=== PATIENT | female | born 1960 | race Caucasian/White ===

== ENCOUNTER 2022-03-05 10:13 | Day surgery (SDC) | payer BC, SELFPAY ==
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
[2022-03-05] VITALS (35 sets, daily range): BP systolic 82–170; BP diastolic 52–128; PULSE 59–93; RESP 13–20; TEMP 36.1–36.8; O2SAT 95–100; BMI 26.2
--- NOTE | 2022-03-05 10:31 | SUR.PREOP ---
NEgative COVID Antigen test.
[2022-03-05] MEDS: OXYCODONE (CR) 10 MG TAB.ER.12H PO (10:57)
[2022-03-05] MEDS: CELECOXIB 200 MG CAPSULE PO ×2 (10:57→20:48)
[2022-03-05] MEDS: ACETAMINOPHEN 500 MG TABLET 1000 MG PO (10:57)
[2022-03-05] MEDS: LACTATED RINGERS 1000 ML 1,000 ML 100 ML IV ×2 (11:25→14:00)
[2022-03-05] MEDS: SODIUM CHLORIDE 0.9 % (FLUSH) 10 ML SYRINGE IVF (11:25)
--- NOTE | 2022-03-05 11:33 | SUR.PREOP ---
TIME?OUT:?1133 PT/RN/MDA?VERIFICATION?OF?SURGICAL?SITE,?PROCEDURE,?AND?CONSENT OBTAINED?PRIOR?TO?INVASIVE?PROCEDURE.
[2022-03-05] MEDS: MIDAZOLAM HCL 1 MG/ML inj IVP (11:35)
[2022-03-05] MEDS: fentaNYL 100 MCG/2 ML inj IVP (11:35)
--- NOTE | 2022-03-05 11:52 | W.PM.NB ---
Nerve Block Nerve Block Time Seen by Provider: 11:40 Date Seen: 03/05/22 Type of block requested by surgeon for post-operative analgesia: adductor canal Side: bilateral Time out performed: Yes Verification of patient name: Yes Verification of date of : Yes Site marking: site marked Name of person performing procedure: Nils Continuous monitoring Was continuous monitoring of O2 sat, B/P, cardiac catheterization technologist, recorded every 15 minutes?: Yes Procedure Checklist: sterile prep, needles and gloves Ultrasound guided. Images saved: Yes Medications given in 5ml increments after negative aspiration: Marcaine %: 0.25 mL: 26 Needle gauge: 20 and Exparel mL: 14 Needle gauge: 20 Patient tolerated procedure well: Yes Additional comments: Needle noted adjacent to nerve Block Charges Block Charge (with Pro Fee): Femoral Nerve Use of Ultrasound Machine for Block: Yes- US Guidance/pain block
--- NOTE | 2022-03-05 11:55 | W.PM.NB ---
Nerve Block Nerve Block Time Seen by Provider: 11:40 Date Seen: 03/05/22 Type of block requested by surgeon for post-operative analgesia: geniculars Side: bilateral Time out performed: Yes Verification of patient name: Yes Verification of date of : Yes Site marking: site marked Name of person performing procedure: Nils Continuous monitoring Was continuous monitoring of O2 sat, B/P, smash piecer, recorded every 15 minutes?: Yes Procedure Checklist: sterile prep, needles and gloves Medications given in 5ml increments after negative aspiration: Marcaine %: 0.25 mL: 14 Needle gauge: 20 and Exparel mL: 6 Needle gauge: 20 Patient tolerated procedure well: Yes Block Charges Block Charge (with Pro Fee): Genicular Nerve Block Use of Ultrasound Machine for Block: No
[2022-03-05] MEDS: CEFAZOLIN 2 GM INJ IVP (12:44)
[2022-03-05] MEDS: TRANEXAMIC ACID 100 MG/ML INJ 1000 MG IV (12:45)
--- NOTE | 2022-03-05 13:54 | CRLHL7_ITS ---
For Patients: As a result of the Century Cures Act, medical imaging exams and procedure reports are released immediately into your electronic medical record. You may view this report before your referring provider. If you have questions, please contact your health care provider. Indication: POST OP BI LAT KNEES Technique: Two views each knee, four views total Findings/Impression: Hardware from bilateral total knee arthroplasties are in satisfactory position. Bone alignment is normal. No sign of acute fracture. Postop changes are within normal limits. Dictated by Cabrera Stanton MD @ 03/05/2022 8:06:56 PM (Electronically Signed)
--- NOTE | 2022-03-05 15:19 | P.ORPRC_ITS ---
Procedure Note Date of procedure: 03/05/22 Procedure: SURGEON: Moy Brink MD CO SUPERVISOR GROUNDS AND LANDSCAPE: NACHO Flaherty PA-C PREOPERATIVE DIAGNOSIS: Bilateral knee osteoarthritis POSTOPERATIVE DIAGNOSIS: Bilateral knee osteoarthritis NAME OF OPERATION: Bilateral total knee arthroplasty ANESTHESIA: Spinal ESTIMATED BLOOD LOSS: 0 mL COMPLICATIONS: None SPECIMENS: None DRAINS: None PREOPERATIVE ANTIBIOTICS: Ancef 2 grams IMPLANTS: Left knee: 1. J&J Attune # 6 narrow posterior stabilized femur 2. # 4 fixed-bearing tibia 3. #6 posterior stabilized, 5 mm fixed-bearing polyethylene 4. 38 patella Right knee: 1. J&J Attune # 5 posterior stabilized femur 2. # 5 fixed-bearing tibia 3. # 5 posterior stabilized, 5 mm fixed-bearing polyethylene 4. 38 patella INDICATIONS: The patient is a 61-year-old female with a longstanding history of severe, unrelenting bilateral knee pain secondary to end-stage (grade IV) bilateral knee osteoarthritis. Despite appropriate nonoperative management, including activity modification, anti-inflammatories, [id number] pain medication, bracing, physical therapy, and injections they continue to have pain and disability. Operative intervention was offered. The risks, benefits and expected outcomes were discussed in detail. These included but were not limited to: Infection, bleeding, injury to blood vessel or nerve, venous thromboembolism. All questions were answered to their satisfaction. Use of an assistant store manager trainee was necessary throughout the case for patient positioning and safety, soft tissue retraction, and closure. PROCEDURE: Spinal anesthesia was administered. The patient was placed supine on the operating table. The assistant store manager trainee made sure the patient was positioned appropriately. Both lower extremities were prepped and draped in the usual sterile fashion. We approached the left knee 1st. The limb was exsanguinated with the Fran bandage. The pneumatic tourniquet was inflated to 300 mmHg. A standard anterior incision was made with the knee in flexion. Subcutaneous dissection was sharply taken through fascial layer #1. Full-thickness medial and lateral flaps were elevated. The assistant store manager trainee retracted the soft tissues and protected them throughout the case. A standard medial parapatellar approach was made. The patella was everted. The infrapatellar fat pad was preserved. The menisci and cruciate ligaments were sharply d?brided. Marginal osteophytes were d?brided with the rongeur. The drill was used to penetrate the femoral canal. The canal was aspirated and irrigated with pulse lavage. The intramedullary femoral guide was placed for a 5-degree valgus cut, removing 10 mm off the distal femur. The saw was used to make the cut. Whitesides line and the trans epicondylar axis were marked. The femoral sizing guide was pinned onto the distal femur. Three degrees of external rotation nicely parallels the transepicondylar axis. Pins were placed for posterior referencing. The four-in-one cutting guide was pinned onto the distal femur. The anterior, posterior, and chamfer cuts were made. The a ssistant protected the collateral ligaments. The box cutting guide was pinned. The box cuts were made. The boxed trial was placed and was an excellent fit. Drill holes for the lugs were made. Attention was then turned to the proximal tibia. The extramedullary tibial guide was placed for a neutral varus/valgus cut with 5 degrees of posterior slope, removing 2 mm based off the medial tibial surface. The assistant store manager trainee protected the collateral ligaments and the neurovascular bundle. The saw was used to make the cut. Trial components were placed. The knee was tight in both flexion and extension. We tested our gaps simulating removing 2 more mm off of the tibia and 4 more mm. We elected to remove 4 more mm as this nicely balanced the knee. Therefore, the tibial guide was replaced. Pins were advanced distally and then the guide was advanced 4 more mm distally. Again, the saw was used to make the cut. Trial components were placed again and now knee is nicely balanced in both flexion and extension. The trial components were removed. The tray was placed in appropriate rotation, parallel to our tibial cutting pins. It was pinned by the assistant store manager trainee and the drill and the punch were used. The tray was removed. The punch was used again. We placed a bone plug in the femoral canal. Attention was then turned to the patella. Navajo patellar thickness was 24 mm. The lobster claw resection guide was used with the 9.5 mm dung. The saw was used to make the cut. Drill holes were made by the assistant store manager trainee. The trial was placed and was an excellent fit. Cancellous surfaces were irrigated with pulse lavage and thoroughly dried by the assistant store manager trainee. We cemented the tibial component, then the femoral component. We impacted the 5 mm polyethylene onto the tibial tray. The knee was brought into full extension. We then cemented the patellar component. Excessive cement was removed. The cement was allowed to harden. The knee was taken through a range of motion and was found to be nicely balanced in both flexion and extension. The patella tracks centrally. The assistant store manager trainee did a three minute dilute Betadine solution soak. The assistant store manager trainee irrigated the wound with 3 liters of normal saline via pulse lavage. The assistant store manager trainee reapproximated the extensor mechanism with #1 Vicryl in an interrupted bigswi-ql-[id number] fashion. The assistant store manager trainee then ran the extensor mechanism with a #1 PDO Stratafix. The assistant store manager trainee closed the subcutaneous tissues with a 3-0 Stratafix and the skin with a running 3-0 Stratafix in a subcuticular fashion. Glue was used to seal the skin. Attention was then turned to the right knee. The limb was exsanguinated with the Fran bandage. The pneumatic tourniquet was inflated to 300 mmHg. A standard anterior incision was made with the knee in flexion. Subcutaneous dissection was sharply taken through fascial layer #1. Full-thickness medial and lateral flaps were elevated. The assistant store manager trainee retracted the soft tissues and protected them throughout the case. A standard medial parapatellar approach was made. The patella was everted. The infrapatellar fat pad was preserved. The menisci and cruciate ligaments were sharply d?brided. Marginal osteophytes were d?brided with the rongeur. The drill was used to penetrate the femoral canal. The canal was aspirated and irrigated with pulse lavage. The intramedullary femoral guide was placed for a 5-degree valgus cut, removing 10 mm off the distal femur. The saw was used to make the cut. Whitesides line and the trans epicondylar axis were marked. The femoral sizing guide was pinned onto the distal femur. Three degrees of external rotation nicely parallels the transepicondylar axis. Pins were placed for posterior referencing. The four-in-one cutting guide was pinned onto the distal femur. The anterior, posterior, and chamfer cuts were made. The assistant store manager trainee protected the collateral ligaments. The box cutting guide was pinned. The box cuts were made. The boxed trial was placed and was an excellent fit. Drill holes for the lugs were made. Attention was then turned to the proximal tibia. The extramedullary tibial guide was placed for a neutral varus/valgus cut with 5 degrees of posterior slope, removing 2 mm based off the medial tibial surface. The assistant store manager trainee protected the collateral ligaments and the neurovascular bundle. The saw was used to make the cut. Trial components were placed. The knee was nicely balanced in both flexion and extension. The trial components were removed. The tray was placed in appropriate rotation, parallel to our tibial cutting pins. It was pinned by the assistant store manager trainee and the drill and the punch were used. The tray was removed. The punch was used again. We placed a bone plug in the femoral canal. Attention was then turned to the patella. Navajo patellar thickness was 25 mm. The Kisstixx claw resection guide was used with the 9.5 mm dung. The saw was used to make the cut. Drill holes were made by the assistant store manager trainee. The trial was placed and was an excellent fit. Cancellous surfaces were irrigated with pulse lavage and thoroughly dried by the assistant store manager trainee. We cemented the tibial component, then the femoral component. We impacted the 5 mm polyethylene onto the tibial tray. The knee was brought into full extension. We then cemented the patellar component. Excessive cement was removed. The cement was allowed to harden. The knee was taken through a range of motion and was found to be nicely balanced in both flexion and extension. The patella tracks centrally. The assistant store manager trainee did a three minute dilute Betadine solution soak. The assistant store manager trainee irrigated the wound with 3 liters of normal saline via pulse lavage. The assistant store manager trainee reapproximated the extensor mechanism with #1 Vicryl in an interrupted aleylh-lk-wsvgx fashion. The assistant store manager trainee then ran the extensor mechanism with a #1 PDO Stratafix. The assistant store manager trainee closed the subcutaneous tissues with a 3-0 Stratafix and the skin with a running 3-0 Stratafix in a subcuticular fashion. Glue was used to seal the skin. On both knees, the assistant store manager trainee placed a dry dressing, YI stocking, and Polar Care. Sponge and needle counts were correct x2. The patient tolerated the procedure well. There were no apparent complications. They were carefully transferred to the hospital bed and taken to the postanesthesia care unit in satisfactory condition. PLAN: The patient will be mobilized with physical therapy. Aspirin will be used for DVT prophylaxis. They will be discharged to home once medically appropriate.
--- NOTE | 2022-03-05 16:09 | W.ANESCHARGE ---
Anesthesia Charges Start Date/Time Anesthesia Start Date: 03/05/22 Anesthesia Start Time: 12:34 Stop Date/Time Anesthesia Stop Date: 03/05/22 Anesthesia Stop Time: 16:06 Summary Emergency: No
--- NOTE | 2022-03-05 16:10 | W.ANESCHARGE ---
Anesthesia Charges Start Date/Time Anesthesia Start Date: 03/05/22 Anesthesia Start Time: 12:34 Stop Date/Time Anesthesia Stop Date: 03/05/22 Anesthesia Stop Time: 16:06 Summary Emergency: No
[2022-03-05] MEDS: HYDROmorphone 0.5 mg/0.5 ml inj IVP ×6 (16:13→22:07)
[2022-03-05] MEDS: ONDANSETRON 2 MG/ML inj 4 MG IVP (16:15)
[2022-03-05] MEDS: fentaNYL 100 MCG/2 ML inj 50 MCG IVP ×2 (16:19→16:34)
[2022-03-05] MEDS: ACETAMINOPHEN 1,000 MG/100 ML INJ 1000 MG IVPB (17:12)
[2022-03-05] MEDS: OXYCODONE 5 MG TABLET PO (19:13)
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
[2022-03-05] MEDS: CEFAZOLIN 1 GM in 0.9 % SODIUM CHLORIDE Mini-bag 100 ML IVPB (19:43)
[2022-03-05] MEDS: ASPIRIN 81 MG TABLET EC PO (20:47)
[2022-03-05] MEDS: SENNOSIDES 1 TAB TABLET 2 TAB PO (20:48)
[2022-03-06] VITALS (7 sets, daily range): BP systolic 118–157; BP diastolic 64–128; PULSE 77–106; RESP 16–18; TEMP 36.2–36.4; O2SAT 95–100
[2022-03-06] MEDS: HYDROmorphone 0.5 mg/0.5 ml inj IVP (00:30)
[2022-03-06] MEDS: OXYCODONE 5 MG TABLET PO ×6 (00:33→13:00)
[2022-03-06] MEDS: ACETAMINOPHEN 500 MG TABLET 1000 MG PO ×3 (00:35→13:00)
[2022-03-06] MEDS: LORazepam 0.5 MG TABLET PO (00:36)
[2022-03-06] MEDS: CEFAZOLIN 1 GM in 0.9 % SODIUM CHLORIDE Mini-bag 100 ML IVPB ×2 (04:21→10:37)
[2022-03-06 06:44] LABS: Basophils Absolute Auto 0.01 K/uL (0.00-0.30); Basophils Percent Auto 0.1 % (0.0-3.0); Eosinophils Absolute Auto 0.01 K/uL (0.00-0.50); Eosinophils Percent Auto 0.1 % (0.0-7.0); Hematocrit 36.7 % (33.0-51.0); Immature Granulocytes Abs Auto 0.01 K/uL (0.00-0.30); Lymphocytes Percent Auto 9.2 % (20-44); Mean Corpuscular HGB Conc 33 gm/dL (32-36); Mean Corpuscular Hemoglobin 29 pg (26-34); Mean Corpuscular Volume 89 fL (80-100); Monocytes Percent Auto 11.1 % (0.0-11.0); Neutrophils Percent Auto 79.4 % (42.0-72.0); Platelet Count* 258 K/uL (140-440); RDW Coefficient of Variation % 14.4 % (11.5-15.5); Red Blood Count 4.14 m/uL (4.00-5.20); White Blood Count* 6.77 K/uL (4.50-11.00)
--- NOTE | 2022-03-06 06:48 | PC.NURSE ---
Pt A&O x3 Up with 1 assist and walker to BR. Did well. Intially pain was an issue but was resolved quickly is now taking oxycodone 10mg q3-4 hrs. Pt slept well.
[2022-03-06 06:57] LABS: Slide Review Reflex No
[2022-03-06 07:10] LABS: Potassium* 4.8 mmol/L (3.6-5.1); Sodium* 137 mmol/L (135-149)
[2022-03-06 07:13] LABS: Blood Urea Nitrogen* 14 mg/dL (7-30); Creatinine* 0.8 mg/dL (0.5-1.5); Est. Creatinine Clearance* 51.02; Estimated Glomerular Filt Rate 84 ml/min
[2022-03-06 07:17] LABS: INR 0.96 (0.91-1.10); Prothrombin Time 13.4 Seconds
--- NOTE | 2022-03-06 07:53 | P.ORPN_ITS ---
Subjective Subjective Time Seen by Provider: 08:30 Date Seen: 03/06/22 Principal diagnosis: Day 1 s/p bilateral TKA Interval history: Sharda is doing well this morning and is resting comfortably in bed. Patient complains of diffuse bilateral knee pain worse at night. Pain is currently well managed with Oxycodone, Tylenol, Ativan and icing. Denies: fever, chills, body aches, chest pain, SOB. Denies having a bowel movement since surgery and reports no flatulence yet. Admits to appetite, however at the end of our conversation, Sharda wished to rest instead of eat her breakfast. Ortho Exam Narrative Exam Narrative: Incision/Dressing: Dressings appear clean and dry. No drainage present. Mepilex intact bilaterally. Bilateral knees appear moderately swollen but supple with no obvious erythema, fluctuance or excessive warmth. No ecchymosis or erythematous streaking. Warmth around the wounds is appropriate. Ice is being utilized as n eeded. CMS: Intact distally with 2+ Dorsalis pedis and Posterior Tibial pulses. 5/5 motor strength dorsal and plantar flexion. Confirmed sensation distally. Calf: Bilateral calves are supple, with no swelling, pain, tenderness, erythema, discoloration or coolness to the touch. Constitutional: Patient is alert and oriented x3. Patient is in no acute distress and converses without labored breathing. Patient is able to make decisions and demonstrates good insight. Patient is pleasant and cooperative. Affect is full range and appropriate for the circumstances. Const Vital Signs, click to edit/add: Vital Signs - 24 hr 03/05/22 11:27 03/05/22 11:33 03/05/22 11:35 Temperature 98.3 F Pulse Rate 79 75 74 Pulse Rate [Left Pulse Oximeter] Respiratory Rate 16 16 16 Blood Pressure 143/91 H 132/83 137/78 Blood Pressure [Left Arm] Pulse Oximetry 97 100 100 Oxygen Delivery Method Room Air Nasal Cannula Nasal Cannula Oxygen Flow Rate 3 3 03/05/22 11:40 03/05/22 11:45 03/05/22 11:50 Temperature Pulse Rate 72 78 71 Pulse Rate [Left Pulse Oximeter] Respiratory Rate 16 16 16 Blood Pressure 117/67 115/63 116/63 Blood Pressure [Left Arm] Pulse Oximetry 100 100 100 Oxygen Delivery Method Nasal Cannula Nasal Cannula Nasal Cannula Oxygen Flow Rate 3 3 3 03/05/22 12:00 03/05/22 12:10 03/05/22 12:20 Temperature Pulse Rate 71 67 64 Pulse Rate [Left Pulse Oximeter] Respiratory Rate 16 16 16 Blood Pressure 118/72 120/73 129/76 Blood Pressure [Left Arm] Pulse Oximetry 100 100 100 Oxygen Delivery Method Nasal Cannula Nasal Cannula Nasal Cannula Oxygen Flow Rate 3 3 3 03/05/22 12:30 03/05/22 16:04 03/05/22 16:25 Temperature 98.3 F 98.3 F Pulse Rate 65 88 78 Pulse Rate [Left Pulse Oximeter] Respiratory Rate 16 17 13 Blood Pressure 138/77 139/80 117/97 H Blood Pressure [Left Arm] Pulse Oximetry 100 100 100 Oxygen Delivery Method Nasal Cannula Oxygen Flow Rate 3 03/05/22 16:55 03/05/22 17:05 03/05/22 17:15 Temperature 98.3 F 98.3 F 98.3 F Pulse Rate 62 83 87 Pulse Rate [Left Pulse Oximeter] Respiratory Rate 14 19 15 Blood Pressure 158/96 H 133/103 H 131/92 H Blood Pressure [Left Arm] Pulse Oximetry 100 100 100 Oxygen Delivery Method Oxygen Flow Rate 03/05/22 17:20 03/05/22 16:10 03/05/22 16:15 Temperature 97.7 F 98.3 F 98.3 F Pulse Rate 85 88 83 Pulse Rate [Left Pulse Oximeter] Respiratory Rate 16 20 17 Blood Pressure 146/95 H 136/82 140/86 H Blood Pressure [Left Arm] Pulse Oximetry 100 100 100 Oxygen Delivery Method Nasal Cannula Oxygen Flow Rate 3 03/05/22 16:20 03/05/22 16:30 03/05/22 16:35 Temperature 98.3 F 98.3 F 98.3 F Pulse Rate 80 81 65 Pulse Rate [Left Pulse Oximeter] Respiratory Rate 17 15 16 Blood Pressure 113/93 H 100/73 150/52 H Blood Pressure [Left Arm] Pulse Oximetry 100 100 100 Oxygen Delivery Method Oxygen Flow Rate 03/05/22 16:39 03/05/22 16:45 03/05/22 16:50 Temperature 98.3 F 98.3 F 98.3 F Pulse Rate 70 86 59 L Pulse Rate [Left Pulse Oximeter] Respiratory Rate 16 16 17 Blood Pressure 150/52 H 82/58 L 115/78 Blood Pressure [Left Arm] Pulse Oximetry 100 100 100 Oxygen Delivery Method Oxygen Flow Rate 03/05/22 17:00 03/05/22 17:10 03/05/22 17:25 Temperature 98.3 F 98.3 F 97.7 F Pulse Rate 61 66 87 Pulse Rate [Left Pulse Oximeter] Respiratory Rate 20 15 16 Blood Pressure 125/100 H 149/86 H 147/128 H Blood Pressure [Left Arm] Pulse Oximetry 100 100 100 Oxygen Delivery Method Oxygen Flow Rate 03/05/22 17:42 03/05/22 17:45 03/05/22 18:00 Temperature 97.5 F L Pulse Rate 77 Pulse Rate [Left Pulse Oximeter] 68 85 Respiratory Rate 16 16 18 Blood Pressure Blood Pressure [Left Arm] 168/83 H 159/84 H 169/88 H Pulse Oximetry 98 96 Oxygen Delivery Method Room Air Room Air Oxygen Flow Rate 03/05/22 18:15 03/05/22 18:30 03/05/22 19:11 Temperature 98.2 F 97 F L Pulse Rate Pulse Rate [Left Pulse Oximeter] 70 74 93 Respiratory Rate 16 16 16 Blood Pressure Blood Pressure [Left Arm] 155/70 H 163/80 H 161/79 H Pulse Oximetry 95 100 100 Oxygen Delivery Method Room Air Room Air Room Air Oxygen Flow Rate 0 03/05/22 19:47 03/05/22 21:12 03/06/22 00:35 Temperature 97 F L 97.5 F L 97.1 F L Pulse Rate Pulse Rate [Left Pulse Oximeter] 88 88 Respiratory Rate 16 16 Blood Pressure Blood Pressure [Left Arm] 170/89 H 149/74 H Pulse Oximetry 98 98 Oxygen Delivery Method Room Air Room Air Oxygen Flow Rate 0 0 03/06/22 01:30 03/06/22 02:28 03/06/22 03:00 Temperature 97.1 F L 97.1 F L 97.1 F L Pulse Rate Pulse Rate [Left Pulse Oximeter] 104 H 92 Respiratory Rate 16 16 Blood Pressure Blood Pressure [Left Arm] 157/64 H 138/96 H Pulse Oximetry 95 95 Oxygen Delivery Method Room Air Room Air Oxygen Flow Rate 0 Documenting provider has reviewed patient's vital signs: yes Assessment and Plan Assessment and plan (1) Total knee replacement status: Problem details: Day 1 s/p bilateral TKA. DOS: 03/05/22. Status: Acute Assessment and Plan: - Complete 23 hour perioperative antibiotics. - PT/OT consults for education and assistance. - Social consult for discharge planning. - Weight bear as tolerated. - DVT prophylaxis includes: aspirin 81 mg BID x 1 month. Also bilateral knee high Luis Enrique stockings (x 1 month), frequent ambulation and ankle pumps when sedentary. - Anticipate patient will be discharged to home this afternoon if the patient remains medically stable, pain is controlled and is safe with ambulation. - Patient has outpatient PT in [place] scheduled to begin Wednesday with [facility]. - Return to clinic in 1 week for a wound check. Mepilex dressing will be removed at this appointment. Remove sooner if dressing becomes saturated. - Return to clinic in [address] Brink. - Prescribed analgesics as needed. Patient is content with current narcotic medications. Minimize narcotic pain medication use; wean off and discontinue as soon as possible. - Phone Orthopedics with any questions or concerns. (2) Bilateral primary osteoarthritis of knee: Status: Acute
[2022-03-06] MEDS: ASPIRIN 81 MG TABLET EC PO (08:14)
[2022-03-06] MEDS: CELECOXIB 200 MG CAPSULE PO (08:14)
[2022-03-06] MEDS: SENNOSIDES 1 TAB TABLET 2 TAB PO (08:14)
[2022-03-06] MEDS: BRIMONIDINE TARTRATE 0.2% OPHTH 1 DROP EYE-BOTH (08:38)
--- NOTE | 2022-03-09 11:32 | PM.DS1 ---
DS: Providers Provider Time Seen by Provider: 08:00 Date Seen: 03/06/22 Date of admission: 03/05/2022 Primary care physician: Lina Brush, [employer], [employer] Admitting Clinician: Moy Brink MD Consults: 03/05/22 17:48 Consult to Occupational Therapy [CONS] Routine Comment: Reason(s) for OT Consult:: ADLs Prior to Discharge Any Restrictions?:: See Comment Comment: See nursing activity order for any restrictions. Consult to Physical Therapy [CONS] Routine Comment: Ambulate in the rehman today. Reason(s) for PT Consult:: TKA TX Protocol POD#0 Any Restrictions?:: See Comment Comment: See nursing activity order for any restrictions. Consult to Physician [CONS] Routine Comment: Consulting Provider: Hospitalists Has provider been notified: No Consult to [place] Planning Manager [CONS] Routine Comment: Reason for Consult:: Discharge Planning Needs Attending Physician on discharge: Moy Brink MD Date of Discharge: 03/06/22 DS: Diagnosis Discharge Diagnosis (1) Bilateral primary osteoarthritis of knee: Status: Acute (2) Total knee replacement status: Status: Acute Problem details: Day 1 s/p bilateral TKA. DOS: 03/05/22. DS: Summary Hospital Course Hospital Course: 61-year-old woman with bilateral end-stage gonarthrosis, who underwent elective bilateral total knee arthroplasties without apparent complication. Status at Discharge Functional status at discharge: uses cane/walker Overall status at discharge: patient is progressing back to baseline Time Spent with Patient Time attestation: Total time spent providing and/or coordinating discharge services: Exam Narrative: Exam Narrative: GEN: Alert HEENT: Normal external ears, EOMIs bilaterally, no scleral icterus CV: RRR, soft systolic murmur without radiation or concerning features R: LCTA bilaterally without concerning wheezing, rales, or rhonchi Ext: wwp, no concerning edema Skin: No concerning skin lesions or rashes on exposed skin Neuro: Nonfocal Psych: Appropriate Able to ambulate the halls with her walker independently. Const: Documenting provider has reviewed patient's vital signs: yes Discharge Plan Discharge Disposition: Home, Self-Care Discharging Surgeon: Moy Brink Follow-Up Appointment: 1 week/or as scheduled Prescriptions: New acetaminophen 500 mg Tablet 500 - 1,000 mg PO Q4-6H Qty: 100 0RF aspirin 81 mg Tablet,Delayed Release (Dr/Ec) 81 mg PO BID Qty: 60 0RF celecoxib 200 mg Capsule 200 mg PO BID Qty: 30 0RF oxycodone 5 mg Tablet 2.5 - 10 mg PO Q4-6H PRN (Reason: Pain) Qty: 42 0RF Rx Instructions: Minimize use. Wean off and discontinue as soon as possible. sennosides [Senna Lax] 8.6 mg Tablet 17.2 mg PO BID PRN (Reason: constipation) Qty: 30 0RF Rx Instructions: Hold if experiencing loose stools. ondansetron 4 mg tablet,disintegrating 4 mg PO Q6H Qty: 20 0RF Rx Instructions: As needed for nausea or vomiting Continued albuterol sulfate [Ventolin HFA] 90 mcg/actuation HFA aerosol inhaler 1 - 2 puff INHALATION Q4H PRN brimonidine 0.2 % drops 1 drp ophthalmic (eye) BID Rx Instructions: both eyes cyclobenzaprine 10 mg tablet 10 mg PO TID PRN latanoprost 0.005 % drops 1 drp ophthalmic (eye) HS meclizine 25 mg tablet 25 mg PO TID PRN valacyclovir [Valtrex] 500 mg tablet 500 mg PO BID Held celecoxib 200 mg capsule 200 mg PO BIDWM Hold Instructions: Resume after completion of celecoxib orders per ortho Activity Level: Activity as Tolerated and No strenuous activity Activity Detail: Keep dressings on for 1 week. Dressings are waterproof. May shower. Surgical glue covers the wounds. Attend physical therapy. Ice and elevate operative extremity without restriction. Wear compression stockings for 1 month post surgery. May remove for 1 hour per day. Ambulate every hour throughout the day. If you drive, do not drive while taking narcotic pain medication. Do not drink alcohol while taking narcotic pain medication. May drive when safe to do so and have full function of the extremities, this will likely take 6 weeks or more. Notify Orthopedics with any questions or concerns. ([phone]) Discharge Diet: Regular Patient Instructions: Acetaminophen (By mouth), Aspirin (By mouth), Oxycodone, Rapid Release (By mouth), Ondansetron (By mouth), Celecoxib (By mouth), Senna (By mouth), Surgical Site Infections (DC), Knee Replacement (DC) Forms: Work/Release Restrictions Follow-up: [facility] [Other] - 03/09/22 11:00 am Katarina Horton PA-C [Physician [employer]] - 03/11/22 12:00 pm ([facility]) Discharge Orders: Discharge Order (Routine); Ordered 03/06/22 Ordered By: Alistair Sifuentes
== END 2022-03-06 15:25 | disposition home or self-care (01) ==
LOC: OR 10:15 → MEDSURG 12:10
PROVIDERS: PCP Nurse Practitioner Family; Visit Provider Orthopaedic Surgery
PROC: 0SRC0JZ Replacement of Right Knee Joint with Synthetic Substitute, Open Approach (ICD-10-PCS; CPT 27447; principal; 2022-03-05 12:15)
DX: M17.0 Bilateral primary osteoarthritis of knee (principal); H40.9 Unspecified glaucoma
CPT/HCPCS: 27447; 01402; 36415; 64447; 64454; 73562; 76942; 82565; 84132; 84295; 84520; 85025; 85610; 97110; 97116; 97161; 97165; 97530; 97535; A9270; C1776; C9290; J0131; J0690; J1170; J2250; J2370; J2405; J2704; J3010; J3490; J7120

== ENCOUNTER 2023-06-16 13:35 | Outpatient (CLI) | payer BC, SELFPAY ==
--- NOTE | 2023-06-16 13:45 | MR_ITS ---
[address] [address] Phone:?[phone] Fax:?[phone] Referring Physician Information: Moy Brink M.D. [id number] [facility] [address] Phone:?[phone] Fax:?[phone] Patient:Pia Phoenix D.O.B:?1960 Sex:?Female Phone:?[phone] [facility] MRN:?[id number] Exam Date:?06/16/2023 EXAM: MRI of the LEFT SHOULDER, without contrast CLINICAL INFORMATION: Female, 63 years old, with left shoulder pain. INDICATION: Evaluate for rotator cuff or biceps injury. PRIOR SURGERY: None reported. PLAIN FILMS: Shoulder radiograph dated 06/07/2023. COMPARISONS: No prior MRIs available. TECHNICAL INFORMATION: Using a 1.5T MR scanner and a localizing surface coil: coronal obliques: PD, T2, STIR sagittal obliques: PD, T2 axials: PD, T2 SEDATION: None CONTRAST: None FINDINGS: Bones: Proximal humerus: No fracture or marrow edema/pathology. No humeral Hill-Sachs or reverse Hill-Sachs lesion/impaction or contusion. Glenoid: No fracture or marrow edema/pathology. No osseous Bankart lesion. Rotator cuff and muscles/tendons: Supraspinatus: Moderate supraspinatus tendinopathy with broad-based low-grade partial-thickness articular surface tearing and an 8 x 4 mm area of low- intermediate grade partial-thickness anterior insertional footprint tearing (coronal STIR series 4 image 10 and sagittal T2 series 8 image 5). No full- thickness tear or muscle atrophy. Infraspinatus: Mild-moderate infraspinatus tendinopathy, without tendon tear or muscle atrophy. Teres minor: No tendinopathy, tear or atrophy. Subscapularis: Mild to moderate tendinopathy of the superior distal subscapularis with 11 x 8 mm area of intermediate grade partial-thickness interstitial tearing at the superior leading edge of the tendon (axial PD series 3 image 15 and sagittal T2 series 8 image 7). No full-thickness tear, retraction, or muscle atrophy. Deltoid: No strain or atrophy. Coracoacromial arch: Acromion morphology: The acromion has type II morphology. No discrete subacromial osseous spur or os acromiale. Acromiohumeral space: The acromiohumeral space measures 5.7 mm at its narrowest point (osseous distance). Coracohumeral space: The coracohumeral space is within normal limits. Acromioclavicular joint: Joint: Mild AC joint arthropathy, which encroaches upon the underlying supraspinatus (coronal PD series 5 image 10). Ligaments: Coracoclavicular ligaments are intact. Bursae: Subacromial-subdeltoid: Mild subacromial-subdeltoid bursal thickening/edema. Subcoracoid: No convincing subcoracoid bursal thickening/bursitis. Biceps tendon: The long head of the biceps tendon is present within the bicipital groove but becomes slightly medially subluxated at the superior aspect of the lesser tuberosity. Mild-moderate tendinopathy and fraying of the intra- articular biceps long head tendon, without split/tear. Glenohumeral joint: Effusion/cyst: Moderate glenohumeral joint effusion. Articular cartilage: Humeral head: Mild-moderate thinning of the articular cartilage throughout the humeral head with a 9 x 7 mm near full-thickness chondral defect superomedially (coronal T2 series 6 image 14 and axial PD series 3 image 12). Glenoid: Mild generalized thinning of the glenoid articular cartilage, without reactive osseous changes. Loose bodies: No discrete intra-articular body within the joint. Labrum:?Circumferential degeneration and fraying of the labrum, which is of doubtful clinical significance. No paralabral cyst. Inferior glenohumeral ligament/axillary pouch:?Intact. The axillary pouch is normal in thickness and signal. No evidence of adhesive capsulitis or capsular injury. IMPRESSION: 1. Moderate supraspinatus tendinopathy with broad-based low-grade partial- thickness articular surface tearing and an 8 x 4 mm area of low-intermediate grade partial-thickness anterior insertional footprint tearing. There is also mild-moderate infraspinatus tendinopathy, without tear. 2. Findings in keeping with a biceps radha injury: -Mild-moderate subscapularis tendinopathy with 11 x 8 mm area of intermediate grade partial-thickness interstitial tearing at the superior leading edge of the tendon. -Slight medial subluxation the biceps long head tendon at the lesser tuberosity. -Mild-moderate tendinopathy and fraying of the intra-articular biceps long head tendon. 3. Mild osteoarthritis of the glenohumeral joint with a moderate joint effusion. 4. Findings in keeping with subacromial impingement as evidenced by mild narrowing of the acromiohumeral space and mild subacromial-subdeltoid bursal inflammation. Additionally, there is mild AC joint arthropathy that encroaches upon the underlying supraspinatus. 5. Circumferential degeneration and fraying of the labrum, which is of doubtful clinical BC Electronically signed on 06/16/2023 3:35:00 PM by Real Renee M.D.
== END 2023-06-16 13:36 | disposition home or self-care (01) ==
LOC: MRI 13:36
PROVIDERS: PCP Nurse Practitioner Family; Visit Provider Orthopaedic Surgery
DX: M25.512 Pain in left shoulder (principal); M75.102 Unspecified rotator cuff tear or rupture of left shoulder, not specified as traumatic; S46.912A Strain of unspecified muscle, fascia and tendon at shoulder and upper arm level, left arm, initial encounter; M19.012 Primary osteoarthritis, left shoulder; M25.412 Effusion, left shoulder; M75.52 Bursitis of left shoulder
CPT/HCPCS: 73221; 97140; 97161

== ENCOUNTER 2023-07-07 13:00 | Outpatient (RCR) | payer BC, SELFPAY | END 2023-07-07 14:22 | disposition home or self-care (01) | PROVIDERS: PCP Nurse Practitioner Family; Visit Provider Orthopaedic Surgery | DX: M25.512 Pain in left shoulder (principal); M25.511 Pain in right shoulder; Z51.89 Encounter for other specified aftercare | CPT/HCPCS: 97110; 97140; 97161 ==